=== PATIENT | female | born 1965 | race Caucasian/White ===

== ENCOUNTER 2021-11-30 07:02 | Day surgery (SDC) | payer OTHER ==
[~2021-11-30] VITALS: Ht 154.9 cm; Wt 57.2 kg
[2021-11-30] MEDS ORDERED: PERCOCET 5-3251 EACH PO (12:34)
== END 2021-11-30 17:20 | disposition home or self-care (01) ==
LOC: CIR.AMB 07:02
PROVIDERS: ATTEND Surgery
DX: D35.1 Benign neoplasm of parathyroid gland (principal); E21.0 Primary hyperparathyroidism; Z20.822 Contact with and (suspected) exposure to COVID-19